=== PATIENT | male | born 1970 | race Caucasian/White ===

== ENCOUNTER 2017-11-16 00:02 | Inpatient (IN) | payer BC, MEDICAID ==
[~2017-11-16] VITALS: Ht 185.4 cm; Wt 72.8 kg
[2017-11-16] MEDS ORDERED: KETOROLAC 30 MG/1 ML IVPush ONE (01:00)
[2017-11-16] MEDS ORDERED: SODIUM CHLORIDE FLUSH 10ML SYR IVF ONE (01:00)
[2017-11-16] MEDS ORDERED: VANCOMYCIN 1,400 MG in SODIUM CHLORIDE 0.9% 250 ML IV ONE (01:00)
[2017-11-16] MEDS ORDERED: SODIUM CHLORIDE 0.9% 1,000ML IVBOLUS ONE (01:00)
[2017-11-16] MEDS ORDERED: AMPICILLIN/SULBACTAM 3 GM in SODIUM CHLORIDE 0.9% 100 ML IVPB ONE (01:00)
[2017-11-16] MEDS ORDERED: ONDANSETRON 2MG/ML, 2ML IVPush ONE (01:00)
[2017-11-16] MEDS ORDERED: MORPHINE SULFATE 4 MG/ML, 1ML IVPush PRN (01:00)
[2017-11-16] MEDS ORDERED: VANCOMYCIN PER PHARMACY IV ONE (01:00)
[2017-11-16 01:17] LABS: BASOPHILS # (AUTO) 0.02 x10^3/uL (0-0.1); BASOPHILS % (AUTO) 0 % (0-1); EOSINOPHILS # (AUTO) 0.06 x10^3/uL (0-0.4); EOSINOPHILS % (AUTO) 1 % (1-7); LYMPHOCYTES # (AUTO) 0.75 x10^3/uL (1-3.4); LYMPHOCYTES % (AUTO) 8 % (22-44); MD NO; MEAN CORPUSCULAR HGB CONC 33.8 g/dL (33.2-36.2); MEAN CORPUSCULAR VOLUME 91.7 fL (81-97); MEAN PLATELET VOLUME 7.2 fL (7.4-10.4); MONOCYTES # (AUTO) 0.59 x10^3/uL (0.2-0.8); MONOCYTES % (AUTO) 6 % (2-9); NEUTROPHILS # (AUTO) 8.33 x10^3/uL (1.8-6.8); NEUTROPHILS % (AUTO) 85 % (42-75); PLATELET COUNT 281 x10^3/uL (130-400); RED BLOOD COUNT 3.66 x10^6/uL (4.38-5.82)
[2017-11-16 01:19] LABS: HCT (SEDRATE) 33.6 % (39.2-51.8)
[2017-11-16 01:27] LABS: ANION GAP 7 mmol/L (5-15); CALCIUM 8.7 mg/dL (8.5-10.1); CHLORIDE 102 mmol/L (98-107); CREATININE 1.01 mg/dL (0.7-1.3)
[2017-11-16] MEDS ORDERED: KETOROLAC 30 MG/1 ML ONE (02:18)
[2017-11-16] MEDS ORDERED: ONDANSETRON 2MG/ML, 2ML ONE (02:18)
[2017-11-16] MEDS ORDERED: GABA300C10 PO (02:43)
[2017-11-16] MEDS ORDERED: METF500T4 PO (02:44)
[2017-11-16] MEDS ORDERED: GLIP5TAB10 PO (02:44)
[2017-11-16] MEDS ORDERED: MORPHINE SULFATE 4 MG/ML, 1ML ONE (05:34)
[2017-11-16] MEDS ORDERED: POTASSIUM CHLORIDE 20 MEQ TAB.ER.PRT PO ONE (06:00)
[2017-11-16] MEDS ORDERED: TEMAZEPAM 15 MG CAPSULE PO PRN (06:00)
[2017-11-16] MEDS ORDERED: KETOROLAC 30 MG/1 ML IM PRN (06:00)
[2017-11-16] MEDS ORDERED: ACETAMINOPHEN 325 MG TABLET PO PRN (06:00)
[2017-11-16] MEDS ORDERED: morphine SULFATE 10 MG/ML, 1ML ONE (06:05)
[2017-11-16] MEDS ORDERED: POTASSIUM CHLORIDE 20 MEQ TAB.ER.PRT ONE (06:08)
[2017-11-16] MEDS ORDERED: ENOXAPARIN 40 MG/0.4 ML ONE (06:08)
[2017-11-16] MEDS: ENOXAPARIN 40 MG/0.4 ML SQ SCH (06:19)
[2017-11-16 07:20] LABS: HEMOGLOBIN A1C 9.1 % (4.2-6.3)
[2017-11-16] MEDS: INSULIN ASPART 100 UNITS/ML, PEN SQ-INSULIN SCH ×4 (07:57→20:36)
[2017-11-16] MEDS: AMPICILLIN/SULBACTAM 3 GM in SODIUM CHLORIDE 0.9% 100 ML IV SCH ×3 (07:59→19:55)
[2017-11-16 12:48] VITALS: BP 96/60
[2017-11-16 15:25] VITALS: BP 96/60
[2017-11-16] MEDS: GABAPENTIN 300 MG CAPSULE PO SCH (20:36)
[2017-11-16 20:44] VITALS: BP 93/53
[2017-11-17 00:17] VITALS: BP 102/67
[2017-11-17] MEDS: AMPICILLIN/SULBACTAM 3 GM in SODIUM CHLORIDE 0.9% 100 ML IV SCH ×4 (02:48→20:14)
[2017-11-17] MEDS: KETOROLAC 30 MG/1 ML IV PRN ×2 (02:49→11:47)
[2017-11-17] MEDS: ENOXAPARIN 40 MG/0.4 ML SQ SCH (05:54)
[2017-11-17 06:04] LABS: BASOPHILS # (AUTO) 0.05 x10^3/uL (0-0.1); BASOPHILS % (AUTO) 1 % (0-1); EOSINOPHILS # (AUTO) 0.19 x10^3/uL (0-0.4); EOSINOPHILS % (AUTO) 3 % (1-7); LYMPHOCYTES # (AUTO) 1.08 x10^3/uL (1-3.4); LYMPHOCYTES % (AUTO) 15 % (22-44); MD NO; MEAN CORPUSCULAR HGB CONC 33.7 g/dL (33.2-36.2); MEAN PLATELET VOLUME 7.1 fL (7.4-10.4); MONOCYTES # (AUTO) 0.69 x10^3/uL (0.2-0.8); MONOCYTES % (AUTO) 9 % (2-9); NEUTROPHILS # (AUTO) 5.39 x10^3/uL (1.8-6.8); NEUTROPHILS % (AUTO) 73 % (42-75); PLATELET COUNT 231 x10^3/uL (130-400); RED BLOOD COUNT 3.45 x10^6/uL (4.38-5.82); RED CELL DISTRIBUTION WIDTH 14.4 % (9.4-14.8)
[2017-11-17 06:13] LABS: ANION GAP 6 mmol/L (5-15); CALCIUM 8.2 mg/dL (8.5-10.1); CHLORIDE 108 mmol/L (98-107); CREATININE 0.84 mg/dL (0.7-1.3)
[2017-11-17 07:45] VITALS: BP 105/64
[2017-11-17] MEDS: INSULIN ASPART 100 UNITS/ML, PEN SQ-INSULIN SCH ×4 (08:56→20:14)
[2017-11-17 12:20] VITALS: BP 103/64
[2017-11-17 15:47] LABS: HCT (SEDRATE) 31.6 % (39.2-51.8)
[2017-11-17 19:07] VITALS: BP 100/59
[2017-11-17] MEDS: GABAPENTIN 300 MG CAPSULE PO SCH (20:14)
[2017-11-18] MEDS: KETOROLAC 30 MG/1 ML IV PRN (00:51)
[2017-11-18] MEDS: AMPICILLIN/SULBACTAM 3 GM in SODIUM CHLORIDE 0.9% 100 ML IV SCH ×4 (01:52→20:05)
[2017-11-18 01:57] VITALS: BP 100/64
[2017-11-18] MEDS: ENOXAPARIN 40 MG/0.4 ML SQ SCH (05:53)
[2017-11-18 06:00] LABS: BASOPHILS # (AUTO) 0.06 x10^3/uL (0-0.1); BASOPHILS % (AUTO) 1 % (0-1); EOSINOPHILS # (AUTO) 0.25 x10^3/uL (0-0.4); EOSINOPHILS % (AUTO) 5 % (1-7); LYMPHOCYTES # (AUTO) 1.39 x10^3/uL (1-3.4); LYMPHOCYTES % (AUTO) 25 % (22-44); MD NO; MEAN CORPUSCULAR HEMOGLOBIN 31.1 pg (27.5-34.5); MEAN CORPUSCULAR VOLUME 91.6 fL (81-97); MEAN PLATELET VOLUME 7.2 fL (7.4-10.4); MONOCYTES # (AUTO) 0.57 x10^3/uL (0.2-0.8); MONOCYTES % (AUTO) 10 % (2-9); NEUTROPHILS # (AUTO) 3.41 x10^3/uL (1.8-6.8); NEUTROPHILS % (AUTO) 60 % (42-75); PLATELET COUNT 261 x10^3/uL (130-400); RED CELL DISTRIBUTION WIDTH 14.4 % (9.4-14.8)
[2017-11-18 06:06] LABS: ANION GAP 6 mmol/L (5-15); CALCIUM 8.2 mg/dL (8.5-10.1); CHLORIDE 110 mmol/L (98-107); CREATININE 0.86 mg/dL (0.7-1.3)
[2017-11-18 06:55] VITALS: BP 111/72
[2017-11-18] MEDS: INSULIN ASPART 100 UNITS/ML, PEN SQ-INSULIN SCH ×4 (08:10→20:13)
[2017-11-18 13:15] VITALS: BP 104/66
[2017-11-18 19:19] VITALS: BP 99/62
[2017-11-18] MEDS: GABAPENTIN 300 MG CAPSULE PO SCH (20:13)
[2017-11-18] MEDS: metFORMIN 500 MG TABLET PO SCH (20:13)
[2017-11-19] MEDS: AMPICILLIN/SULBACTAM 3 GM in SODIUM CHLORIDE 0.9% 100 ML IV SCH ×4 (02:14→21:18)
[2017-11-19 02:52] VITALS: BP 108/71
[2017-11-19] MEDS: ENOXAPARIN 40 MG/0.4 ML SQ SCH (05:39)
[2017-11-19] MEDS: INSULIN ASPART 100 UNITS/ML, PEN SQ-INSULIN SCH ×4 (08:10→21:00)
[2017-11-19] MEDS: metFORMIN 500 MG TABLET PO SCH ×2 (08:11→21:52)
[2017-11-19] MEDS ORDERED: GLUCAGON 1 MG IM PRN (15:30)
[2017-11-19] MEDS ORDERED: DEXTROSE 4 GM TAB.CHEW PO PRN (15:30)
[2017-11-19] MEDS ORDERED: DEXTROSE 50%, 50ML SYRINGE IVPush PRN (15:30)
[2017-11-19] MEDS ORDERED: VANCOMYCIN PER PHARMACY MC PRN (15:30)
[2017-11-19] MEDS ORDERED: PHARMACOKINETIC CONSULTATION MC ONE (16:00)
[2017-11-19] MEDS ORDERED: PHARMACOKINETIC MONITORING MC PRN (16:00)
[2017-11-19] MEDS: KETOROLAC 30 MG/1 ML IV PRN (16:19)
[2017-11-19] MEDS: VANCOMYCIN 1,500 MG in SODIUM CHLORIDE 0.9% 250 ML IV SCH (19:02)
[2017-11-19] MEDS: GABAPENTIN 300 MG CAPSULE PO SCH (21:52)
[2017-11-19] MEDS: SODIUM CHLORIDE FLUSH 10ML SYR IVF SCH (21:52)
[2017-11-20] MEDS: AMPICILLIN/SULBACTAM 3 GM in SODIUM CHLORIDE 0.9% 100 ML IV SCH ×4 (02:18→20:16)
[2017-11-20] MEDS: ENOXAPARIN 40 MG/0.4 ML SQ SCH (05:50)
[2017-11-20 05:53] LABS: BASOPHILS # (AUTO) 0.05 x10^3/uL (0-0.1); BASOPHILS % (AUTO) 1 % (0-1); EOSINOPHILS # (AUTO) 0.19 x10^3/uL (0-0.4); EOSINOPHILS % (AUTO) 4 % (1-7); LYMPHOCYTES # (AUTO) 1.36 x10^3/uL (1-3.4); LYMPHOCYTES % (AUTO) 26 % (22-44); MD NO; MEAN CORPUSCULAR HEMOGLOBIN 30.9 pg (27.5-34.5); MEAN CORPUSCULAR HGB CONC 33.5 g/dL (33.2-36.2); MEAN CORPUSCULAR VOLUME 92.3 fL (81-97); MEAN PLATELET VOLUME 7.1 fL (7.4-10.4); MONOCYTES # (AUTO) 0.48 x10^3/uL (0.2-0.8); MONOCYTES % (AUTO) 9 % (2-9); NEUTROPHILS # (AUTO) 3.14 x10^3/uL (1.8-6.8); NEUTROPHILS % (AUTO) 60 % (42-75); PLATELET COUNT 317 x10^3/uL (130-400); RED BLOOD COUNT 3.58 x10^6/uL (4.38-5.82); RED CELL DISTRIBUTION WIDTH 14.5 % (9.4-14.8)
[2017-11-20 05:59] LABS: ANION GAP 5 mmol/L (5-15); CALCIUM 8.1 mg/dL (8.5-10.1); CHLORIDE 111 mmol/L (98-107)
[2017-11-20 06:11] LABS: CREATININE 0.77 mg/dL (0.7-1.3)
[2017-11-20] MEDS ORDERED: GADOBUTROL 7.5 MMOL/7.5 ML PFS ONE (08:05)
[2017-11-20 08:42] VITALS: BP 113/74
[2017-11-20] MEDS: metFORMIN 500 MG TABLET PO SCH ×2 (08:51→20:16)
[2017-11-20] MEDS: INSULIN ASPART 100 UNITS/ML, PEN SQ-INSULIN SCH ×4 (08:51→20:12)
[2017-11-20] MEDS: SODIUM CHLORIDE FLUSH 10ML SYR IVF SCH ×2 (08:52→20:17)
[2017-11-20] MEDS: VANCOMYCIN 1,500 MG in SODIUM CHLORIDE 0.9% 250 ML IV SCH (10:35)
[2017-11-20 14:40] VITALS: BP 104/59
[2017-11-20] MEDS ORDERED: D5%-0.9% NACL 1,000 ML IV SCH (15:00)
[2017-11-20] MEDS ORDERED: MIDAZOLAM 1 MG/ML, 2ML ONE (17:20)
[2017-11-20] MEDS ORDERED: FENTANYL PF 100 MCG/2ML ONE (17:20)
[2017-11-20] MEDS ORDERED: KETAMINE 10 MG/ML, 20ML ONE (18:14)
[2017-11-20] MEDS ORDERED: FENTANYL PF 100 MCG/2ML IV PRN (19:00)
[2017-11-20] MEDS ORDERED: ONDANSETRON 2MG/ML, 2ML IVPush PRN (19:00)
[2017-11-20] MEDS ORDERED: OXYcodone 5 MG/5 ML ORAL.SOL UDC PO PRN (19:00)
[2017-11-20] MEDS ORDERED: KETOROLAC 30 MG/1 ML IV PRN (19:00)
[2017-11-20] MEDS ORDERED: ALBUTEROL SULFATE 2.5 MG/3 ML NPPB PRN (19:00)
[2017-11-20] MEDS ORDERED: PROMETHAZINE 25 MG/ML, 1ML IV PRN (19:00)
[2017-11-20] MEDS ORDERED: HYDROmorphone 1 MG/ML, 1ML IV PRN (19:00)
[2017-11-20] MEDS ORDERED: ACETAMINOPHEN 325 MG TABLET PO PRN (19:00)
[2017-11-20] MEDS ORDERED: KETOROLAC 30 MG/1 ML ONE (19:05)
[2017-11-20] MEDS ORDERED: OXYcodone 5 MG/5 ML ORAL.SOL UDC ONE (19:05)
[2017-11-20] MEDS: GABAPENTIN 300 MG CAPSULE PO SCH (20:16)
[2017-11-20 20:25] VITALS: BP 120/80
[2017-11-21] MEDS: VANCOMYCIN 1,500 MG in SODIUM CHLORIDE 0.9% 250 ML IV SCH ×2 (00:19→12:37)
[2017-11-21 00:34] VITALS: BP 112/69
[2017-11-21] MEDS: KETOROLAC 30 MG/1 ML IV PRN (02:06)
[2017-11-21] MEDS: AMPICILLIN/SULBACTAM 3 GM in SODIUM CHLORIDE 0.9% 100 ML IV SCH ×4 (02:06→23:26)
[2017-11-21] MEDS: ENOXAPARIN 40 MG/0.4 ML SQ SCH (06:22)
[2017-11-21] MEDS: INSULIN ASPART 100 UNITS/ML, PEN SQ-INSULIN SCH ×4 (07:44→19:34)
[2017-11-21] MEDS: HYDROcodone/APAP 5/325 TABLET PO PRN ×4 (07:44→23:26)
[2017-11-21 07:45] VITALS: BP 116/71
[2017-11-21 08:26] LABS: BASOPHILS # (AUTO) 0.05 x10^3/uL (0-0.1); BASOPHILS % (AUTO) 1 % (0-1); EOSINOPHILS # (AUTO) 0.15 x10^3/uL (0-0.4); EOSINOPHILS % (AUTO) 2 % (1-7); LYMPHOCYTES # (AUTO) 1.08 x10^3/uL (1-3.4); LYMPHOCYTES % (AUTO) 17 % (22-44); MD NO; MEAN CORPUSCULAR HEMOGLOBIN 31.3 pg (27.5-34.5); MEAN CORPUSCULAR VOLUME 92.2 fL (81-97); MEAN PLATELET VOLUME 6.9 fL (7.4-10.4); MONOCYTES # (AUTO) 0.44 x10^3/uL (0.2-0.8); MONOCYTES % (AUTO) 7 % (2-9); NEUTROPHILS # (AUTO) 4.82 x10^3/uL (1.8-6.8); NEUTROPHILS % (AUTO) 74 % (42-75); PLATELET COUNT 310 x10^3/uL (130-400); RED BLOOD COUNT 3.65 x10^6/uL (4.38-5.82); RED CELL DISTRIBUTION WIDTH 14.4 % (9.4-14.8)
[2017-11-21 08:31] LABS: ANION GAP 7 mmol/L (5-15); CALCIUM 7.6 mg/dL (8.5-10.1); CHLORIDE 107 mmol/L (98-107); CREATININE 0.86 mg/dL (0.7-1.3)
[2017-11-21] MEDS: metFORMIN 500 MG TABLET PO SCH ×2 (08:44→19:34)
[2017-11-21] MEDS: SODIUM CHLORIDE FLUSH 10ML SYR IVF SCH ×2 (08:45→19:34)
[2017-11-21 14:50] VITALS: BP 92/51
[2017-11-21] MEDS ORDERED: PROPOFOL 10 MG/ML, 20ML ONE (17:54)
[2017-11-21 19:12] VITALS: BP 108/69
[2017-11-21] MEDS: GABAPENTIN 300 MG CAPSULE PO SCH (19:34)
[2017-11-22 01:19] VITALS: BP 107/56
[2017-11-22] MEDS: AMPICILLIN/SULBACTAM 3 GM in SODIUM CHLORIDE 0.9% 100 ML IV SCH ×2 (05:24→12:06)
[2017-11-22] MEDS: ENOXAPARIN 40 MG/0.4 ML SQ SCH (05:31)
[2017-11-22] MEDS: INSULIN ASPART 100 UNITS/ML, PEN SQ-INSULIN SCH ×4 (07:00→21:00)
[2017-11-22 08:33] VITALS: BP 101/60
[2017-11-22] MEDS: SODIUM CHLORIDE FLUSH 10ML SYR IVF SCH ×2 (09:00→19:33)
[2017-11-22] MEDS: metFORMIN 500 MG TABLET PO SCH ×2 (09:28→19:41)
[2017-11-22] MEDS: HYDROcodone/APAP 5/325 TABLET PO PRN ×2 (09:28→19:31)
[2017-11-22] MEDS ORDERED: DAPTOMYCIN IVPB SCH (13:30)
[2017-11-22] MEDS ORDERED: SODIUM CHLORIDE 0.9% IVPB SCH (13:30)
[2017-11-22] MEDS: DAPTOMYCIN 500 MG in SODIUM CHLORIDE 0.9% 100 ML IVPB SCH (14:58)
[2017-11-22 16:13] VITALS: BP 120/56
[2017-11-22] MEDS ORDERED: PNEUMOCOCCAL 23 VACCINE IM-VACC ONE (17:30)
[2017-11-22] MEDS ORDERED: VANCOMYCIN 1,500 MG in SODIUM CHLORIDE 0.9% 250 ML IV SCH ×2 (18:00)
[2017-11-22 19:16] VITALS: BP 104/61
[2017-11-22] MEDS: GABAPENTIN 300 MG CAPSULE PO SCH (19:42)
[2017-11-23 02:03] VITALS: BP 108/67
[2017-11-23] MEDS: ENOXAPARIN 40 MG/0.4 ML SQ SCH (05:17)
[2017-11-23 05:32] LABS: MEAN CORPUSCULAR HGB CONC 33.3 g/dL (33.2-36.2); MEAN CORPUSCULAR VOLUME 92.8 fL (81-97); NEUTROPHILS % (AUTO) 67 % (42-75); PLATELET COUNT 356 x10^3/uL (130-400); RED BLOOD COUNT 3.86 x10^6/uL (4.38-5.82); RED CELL DISTRIBUTION WIDTH 14.6 % (9.4-14.8)
[2017-11-23 05:33] LABS: BASOPHILS # (AUTO) 0.06 x10^3/uL (0-0.1); BASOPHILS % (AUTO) 1 % (0-1); EOSINOPHILS # (AUTO) 0.22 x10^3/uL (0-0.4); EOSINOPHILS % (AUTO) 3 % (1-7); LYMPHOCYTES # (AUTO) 1.38 x10^3/uL (1-3.4); LYMPHOCYTES % (AUTO) 21 % (22-44); MD NO; MONOCYTES # (AUTO) 0.47 x10^3/uL (0.2-0.8); MONOCYTES % (AUTO) 7 % (2-9); NEUTROPHILS # (AUTO) 4.43 x10^3/uL (1.8-6.8)
[2017-11-23 05:41] LABS: CHLORIDE 106 mmol/L (98-107)
[2017-11-23 05:46] LABS: ANION GAP 8 mmol/L (5-15); CALCIUM 8.3 mg/dL (8.5-10.1); CREATININE 0.86 mg/dL (0.7-1.3)
[2017-11-23] MEDS: INSULIN ASPART 100 UNITS/ML, PEN SQ-INSULIN SCH ×4 (07:00→20:42)
[2017-11-23 08:12] VITALS: BP 115/69
[2017-11-23] MEDS: SODIUM CHLORIDE FLUSH 10ML SYR IVF SCH ×2 (08:23→20:42)
[2017-11-23] MEDS: metFORMIN 500 MG TABLET PO SCH ×2 (08:24→20:42)
[2017-11-23] MEDS: DAPTOMYCIN 500 MG in SODIUM CHLORIDE 0.9% 100 ML IVPB SCH (13:30)
[2017-11-23 14:58] VITALS: BP 113/69
[2017-11-23] MEDS: HYDROcodone/APAP 5/325 TABLET PO PRN (16:25)
[2017-11-23 20:16] VITALS: BP 103/60
[2017-11-23] MEDS: GABAPENTIN 300 MG CAPSULE PO SCH (20:42)
[2017-11-24 03:22] VITALS: BP 119/78
[2017-11-24] MEDS: ENOXAPARIN 40 MG/0.4 ML SQ SCH (06:25)
[2017-11-24] MEDS: INSULIN ASPART 100 UNITS/ML, PEN SQ-INSULIN SCH ×4 (07:00→20:12)
[2017-11-24 07:52] VITALS: BP 120/76
[2017-11-24] MEDS: SODIUM CHLORIDE FLUSH 10ML SYR IVF SCH ×2 (10:43→20:48)
[2017-11-24] MEDS: metFORMIN 500 MG TABLET PO SCH ×2 (10:43→20:48)
[2017-11-24] MEDS: DAPTOMYCIN 500 MG in SODIUM CHLORIDE 0.9% 100 ML IVPB SCH (15:01)
[2017-11-24 15:08] VITALS: BP 98/62
[2017-11-24 19:11] VITALS: BP 106/66
[2017-11-24] MEDS: GABAPENTIN 300 MG CAPSULE PO SCH (20:48)
[2017-11-25 02:28] VITALS: BP 108/68
[2017-11-25] MEDS: ENOXAPARIN 40 MG/0.4 ML SQ SCH (06:03)
[2017-11-25 07:20] VITALS: BP 112/73
[2017-11-25] MEDS: INSULIN ASPART 100 UNITS/ML, PEN SQ-INSULIN SCH ×4 (07:30→20:41)
[2017-11-25] MEDS: SODIUM CHLORIDE FLUSH 10ML SYR IVF SCH ×2 (10:47→20:37)
[2017-11-25] MEDS: metFORMIN 500 MG TABLET PO SCH ×2 (10:47→20:37)
[2017-11-25] MEDS: DAPTOMYCIN 500 MG in SODIUM CHLORIDE 0.9% 100 ML IVPB SCH (14:00)
[2017-11-25 14:01] VITALS: BP 92/55
[2017-11-25 18:27] VITALS: BP 96/54
[2017-11-25] MEDS: GABAPENTIN 300 MG CAPSULE PO SCH (20:37)
[2017-11-26 02:54] VITALS: BP 96/53
[2017-11-26] MEDS: ENOXAPARIN 40 MG/0.4 ML SQ SCH (06:26)
[2017-11-26] MEDS: INSULIN ASPART 100 UNITS/ML, PEN SQ-INSULIN SCH ×4 (07:00→21:00)
[2017-11-26 08:00] VITALS: BP 96/54
[2017-11-26] MEDS: metFORMIN 500 MG TABLET PO SCH ×2 (08:54→20:47)
[2017-11-26] MEDS: SODIUM CHLORIDE FLUSH 10ML SYR IVF SCH ×2 (08:54→20:47)
[2017-11-26 10:56] VITALS: BP 101/63
[2017-11-26 13:04] VITALS: BP 91/51
[2017-11-26] MEDS: DAPTOMYCIN 500 MG in SODIUM CHLORIDE 0.9% 100 ML IVPB SCH (14:56)
[2017-11-26 18:53] VITALS: BP 97/56
[2017-11-26] MEDS: GABAPENTIN 300 MG CAPSULE PO SCH (20:47)
[2017-11-26] MEDS: ONDANSETRON 2MG/ML, 2ML IVPush PRN (22:32)
[2017-11-27 01:33] VITALS: BP 102/62
[2017-11-27 02:36] LABS: CREATININE 0.84 mg/dL (0.7-1.3)
[2017-11-27] MEDS: ENOXAPARIN 40 MG/0.4 ML SQ SCH (06:02)
[2017-11-27 07:26] VITALS: BP 104/65
[2017-11-27] MEDS: metFORMIN 500 MG TABLET PO SCH ×2 (09:33→19:55)
[2017-11-27] MEDS: SODIUM CHLORIDE FLUSH 10ML SYR IVF SCH ×2 (09:33→19:55)
[2017-11-27] MEDS: INSULIN ASPART 100 UNITS/ML, PEN SQ-INSULIN SCH ×4 (09:34→21:00)
[2017-11-27] MEDS: DAPTOMYCIN 500 MG in SODIUM CHLORIDE 0.9% 100 ML IVPB SCH (13:50)
[2017-11-27 13:55] VITALS: BP 100/61
[2017-11-27 19:01] VITALS: BP 94/56
[2017-11-27] MEDS: GABAPENTIN 300 MG CAPSULE PO SCH (19:55)
[2017-11-28 01:15] VITALS: BP 94/54
[2017-11-28] MEDS: ENOXAPARIN 40 MG/0.4 ML SQ SCH (06:41)
[2017-11-28] MEDS: INSULIN ASPART 100 UNITS/ML, PEN SQ-INSULIN SCH ×2 (07:00→11:00)
[2017-11-28 07:07] VITALS: BP 90/55
[2017-11-28] MEDS: SODIUM CHLORIDE FLUSH 10ML SYR IVF SCH ×2 (09:00→20:36)
[2017-11-28] MEDS: metFORMIN 500 MG TABLET PO SCH ×2 (10:04→20:36)
[2017-11-28 15:17] VITALS: BP 94/57
[2017-11-28] MEDS: INSULIN LISPRO 100 UNITS/ML, PEN SQ-INSULIN SCH ×2 (16:00→20:42)
[2017-11-28] MEDS: DAPTOMYCIN 500 MG in SODIUM CHLORIDE 0.9% 100 ML IVPB SCH (16:06)
[2017-11-28 19:48] VITALS: BP 99/64
[2017-11-28] MEDS: GABAPENTIN 300 MG CAPSULE PO SCH (20:36)
[2017-11-29 01:26] VITALS: BP 97/52
[2017-11-29 03:25] LABS: BASOPHILS # (AUTO) 0.11 x10^3/uL (0-0.1); BASOPHILS % (AUTO) 1 % (0-1); EOSINOPHILS # (AUTO) 0.34 x10^3/uL (0-0.4); EOSINOPHILS % (AUTO) 4 % (1-7); LYMPHOCYTES # (AUTO) 1.82 x10^3/uL (1-3.4); LYMPHOCYTES % (AUTO) 22 % (22-44); MD NO; MEAN CORPUSCULAR HEMOGLOBIN 30.5 pg (27.5-34.5); MEAN CORPUSCULAR HGB CONC 33.2 g/dL (33.2-36.2); MEAN CORPUSCULAR VOLUME 91.8 fL (81-97); MEAN PLATELET VOLUME 7.2 fL (7.4-10.4); MONOCYTES # (AUTO) 0.55 x10^3/uL (0.2-0.8); MONOCYTES % (AUTO) 7 % (2-9); NEUTROPHILS # (AUTO) 5.53 x10^3/uL (1.8-6.8); NEUTROPHILS % (AUTO) 66 % (42-75); PLATELET COUNT 331 x10^3/uL (130-400); RED BLOOD COUNT 3.96 x10^6/uL (4.38-5.82); RED CELL DISTRIBUTION WIDTH 15.1 % (9.4-14.8)
[2017-11-29 03:30] LABS: ALANINE AMINOTRANSFERASE 24 U/L (12-78); ALBUMIN 2.7 g/dL (3.4-5.0); ANION GAP 6 mmol/L (5-15); C-REACTIVE PROTEIN, QUANT 0.62 mg/dL (0.02-0.49); CALCIUM 8.3 mg/dL (8.5-10.1); CHLORIDE 104 mmol/L (98-107); CREATININE 0.83 mg/dL (0.7-1.3)
[2017-11-29 03:33] LABS: ALKALINE PHOSPHATASE 106 U/L (45-117); BILIRUBIN,TOTAL 0.2 mg/dL (0.2-1.0); CREATINE KINASE, TOTAL 35 U/L (39-308); TOTAL PROTEIN 6.9 g/dL (6.4-8.2)
[2017-11-29 04:15] LABS: HCT (SEDRATE) 36.3 % (39.2-51.8)
[2017-11-29] MEDS: ENOXAPARIN 40 MG/0.4 ML SQ SCH (05:47)
[2017-11-29] MEDS: INSULIN ASPART 100 UNITS/ML, PEN SQ-INSULIN SCH ×4 (07:00→20:32)
[2017-11-29] MEDS: metFORMIN 500 MG TABLET PO SCH ×2 (07:32→20:32)
[2017-11-29 08:01] VITALS: BP 109/60
[2017-11-29] MEDS: SODIUM CHLORIDE FLUSH 10ML SYR IVF SCH ×2 (09:00→20:32)
[2017-11-29 13:51] VITALS: BP 107/41
[2017-11-29] MEDS: DAPTOMYCIN 500 MG in SODIUM CHLORIDE 0.9% 100 ML IVPB SCH (16:37)
[2017-11-29 18:40] VITALS: BP 109/64
[2017-11-29] MEDS: GABAPENTIN 300 MG CAPSULE PO SCH (20:32)
[2017-11-29] MEDS: ONDANSETRON 2MG/ML, 2ML IVPush PRN (20:35)
[2017-11-30 01:38] VITALS: BP 97/58
[2017-11-30] MEDS: ENOXAPARIN 40 MG/0.4 ML SQ SCH (05:59)
[2017-11-30] MEDS: INSULIN ASPART 100 UNITS/ML, PEN SQ-INSULIN SCH ×2 (07:00→11:00)
[2017-11-30] MEDS: SODIUM CHLORIDE FLUSH 10ML SYR IVF SCH (07:27)
[2017-11-30] MEDS: metFORMIN 500 MG TABLET PO SCH (07:27)
[2017-11-30 07:36] VITALS: BP 96/58
[2017-11-30] MEDS ORDERED: ACET325T14 PO (10:59)
== END 2017-11-30 14:03 | DRG 629 ==
LOC: ED 02:03 → EDIP 02:08 → 3NE 12:23
PROVIDERS: ADMIT Internal Medicine; ATTEND Family Medicine
PROC: 0QBP0ZZ Excision of Left Metatarsal, Open Approach (ICD-10-PCS; 2017-11-20)
PROC: 0KBT0ZZ Excision of Left Lower Leg Muscle, Open Approach (ICD-10-PCS; 2017-11-20)
PROC: 0LXP0ZZ Transfer Left Lower Leg Tendon, Open Approach (ICD-10-PCS; 2017-11-20)
PROC: 02HV33Z Insertion of Infusion Device into Superior Vena Cava, Percutaneous Approach (ICD-10-PCS; principal; 2017-11-21)
PROC: B5181ZA Fluoroscopy of Superior Vena Cava using Low Osmolar Contrast, Guidance (ICD-10-PCS; 2017-11-21)
DX: E11.69 Type 2 diabetes mellitus with other specified complication (principal); M86.172 Other acute osteomyelitis, left ankle and foot; E11.621 Type 2 diabetes mellitus with foot ulcer; E11.40 Type 2 diabetes mellitus with diabetic neuropathy, unspecified; I95.9 Hypotension, unspecified; M00.9 Pyogenic arthritis, unspecified; L03.116 Cellulitis of left lower limb; E11.622 Type 2 diabetes mellitus with other skin ulcer; L97.509 Non-pressure chronic ulcer of other part of unspecified foot with unspecified severity; D64.9 Anemia, unspecified; E11.65 Type 2 diabetes mellitus with hyperglycemia; F17.210 Nicotine dependence, cigarettes, uncomplicated
CPT/HCPCS: 36415; 36569; 76937; 77001; 80048; 80053; 80202; 82040; 82550; 82565; 82962; 83036; 83605; 83735; 84145; 85025; 85651; 86140; 87040; 87070; 87075; 87077; 87176; 87186; 87205; 90732; 96365; 96375; A9585; J0295; J0878; J1650; J1815; J1885; J2250; J2405; J2704; J3010; J3370; J7042; C1751; J7030; J7050

== ENCOUNTER 2020-04-12 00:48 | Inpatient (IN) | payer MEDICAID ==
[~2020-04-12] VITALS: Ht 185.4 cm; Wt 71.0 kg
[~2020-04-12 00:48] MED LIST: ACET325T14 PO; GABA300C10 PO; GLIP5TAB10 PO; METF500T17 PO
[2020-04-12] MEDS ORDERED: SODIUM CHLORIDE FLUSH 10ML SYR IVF ONE (01:30)
[2020-04-12] MEDS ORDERED: SODIUM CHLORIDE 0.9% 1,000ML IVBOLUS ONE (01:30)
--- NOTE | 2020-04-12 01:52 | NUR ---
PT TO ED WITH C/O INFECTION OF THE RIGHT GREAT TOE. REPORTS HE IS A DIABETIC AND HAS BEEN OUT OF HIS INSULIN FOR A COUPLE OF WEEKS. DENIES FEVERS OR VOMITING. REPORTS PAINFUL WHEN WALKING. IV STARTED AND BLOOD DRAWN AND SENT TO LAB.
[2020-04-12 01:54] LABS: BASOPHILS # (AUTO) 0.07 x10^3/uL (0-0.1); BASOPHILS % (AUTO) 1 % (0-1); EOSINOPHILS # (AUTO) 0.14 x10^3/uL (0-0.4); EOSINOPHILS % (AUTO) 2 % (1-7); LYMPHOCYTES # (AUTO) 1.31 x10^3/uL (1-3.4); LYMPHOCYTES % (AUTO) 14 % (22-44); MD NO; MEAN CORPUSCULAR HEMOGLOBIN 32.4 pg (27.5-34.5); MEAN CORPUSCULAR HGB CONC 33.1 g/dL (33.2-36.2); MEAN CORPUSCULAR VOLUME 97.7 fL (81-97); MEAN PLATELET VOLUME 7.9 fL (7.4-10.4); MONOCYTES # (AUTO) 0.58 x10^3/uL (0.2-0.8); MONOCYTES % (AUTO) 6 % (2-9); NEUTROPHILS # (AUTO) 7.57 x10^3/uL (1.8-6.8); NEUTROPHILS % (AUTO) 78 % (42-75); PLATELET COUNT 207 x10^3/uL (130-400); RED BLOOD COUNT 4.14 x10^6/uL (4.38-5.82); RED CELL DISTRIBUTION WIDTH 13.5 % (9.4-14.8)
[2020-04-12] MEDS ORDERED: MORPHINE SULFATE 4 MG/ML, 1ML ONE (01:56)
--- NOTE | 2020-04-12 01:58 | NUR ---
edit: right 5th digit
[2020-04-12] MEDS: MORPHINE SULFATE 4 MG/ML, 1ML IV PRN ×2 (01:59→05:16)
--- NOTE | 2020-04-12 02:01 | NUR ---
MEDICATION GIVEN PER EMAR. AWAITING LAB AND XRAY RESULTS.
[2020-04-12] MEDS ORDERED: INSU100V8 SQ (02:03)
[2020-04-12 02:04] LABS: HCT (SEDRATE) 40.4 % (39.2-51.8)
[2020-04-12 02:07] LABS: ALANINE AMINOTRANSFERASE 19 U/L (12-78); ALBUMIN 3.3 g/dL (3.4-5.0); ANION GAP 8 mmol/L (5-15); CALCIUM 8.5 mg/dL (8.5-10.1); CHLORIDE 104 mmol/L (98-107); CREATININE 1.08 mg/dL (0.7-1.3)
[2020-04-12 02:14] LABS: ALKALINE PHOSPHATASE 99 U/L (45-117); BILIRUBIN,TOTAL 0.9 mg/dL (0.2-1.0); TOTAL PROTEIN 7.1 g/dL (6.4-8.2)
--- NOTE | 2020-04-12 03:22 | NUR ---
PT RESTING AT THIS TIME. PT AGREEABLE TO PLAN OF CARE OF ADMISSION.
[2020-04-12] MEDS ORDERED: AMPICILLIN/SULBACTAM 3 GM in SODIUM CHLORIDE 0.9% 100 ML IV ONE (03:30)
[2020-04-12] MEDS ORDERED: VANCOMYCIN 1,400 MG in SODIUM CHLORIDE 0.9% 250 ML IV ONE (03:30)
[2020-04-12] MEDS ORDERED: VANCOMYCIN PER PHARMACY MC ONE (03:30)
--- NOTE | 2020-04-12 03:32 | NUR ---
LAB TO BEDSIDE TO DRAW CULTURES.
--- NOTE | 2020-04-12 04:01 | NUR ---
AMIRAH STARTED. PT DENIES CURRENT CONCERNS. AWAITING INPATIENT BED PLACEMENT.
[2020-04-12] MEDS ORDERED: DOCUSATE 100 MG CAPSULE PO PRN (04:30)
[2020-04-12] MEDS ORDERED: KETOROLAC 30 MG/1 ML IM PRN (04:30)
[2020-04-12] MEDS ORDERED: ACETAMINOPHEN 325 MG TABLET PO PRN (04:30)
[2020-04-12] MEDS ORDERED: IBUPROFEN 600 MG TABLET PO PRN ×2 (04:30→05:24)
[2020-04-12] MEDS ORDERED: ONDANSETRON 2MG/ML, 2ML IVPush PRN (04:30)
--- NOTE | 2020-04-12 04:33 | NUR ---
UNASYN INFUSION COMPLETE. VANCOMYCIN INFUSING ON PUMP. PT SLEEPING. AWAITING INPATIENT BED PLACEMENT.
[2020-04-12] MEDS ORDERED: VANCOMYCIN PER PHARMACY MC PRN (05:00)
[2020-04-12 05:18] VITALS: BP 99/59
[2020-04-12] MEDS: NICOTINE 7 MG/24 HR PATCH.TD24 TD SCH (05:29)
[2020-04-12] MEDS: ENOXAPARIN 40 MG/0.4 ML SQ SCH (05:29)
[2020-04-12] MEDS ORDERED: PHARMACOKINETIC CONSULTATION MC ONE (05:30)
[2020-04-12] MEDS ORDERED: PHARMACOKINETIC MONITORING MC PRN (05:30)
[2020-04-12] MEDS: INSULIN GLARGINE 100 UNITS/ML, PEN SQ-INSULIN SCH ×2 (06:35→20:30)
[2020-04-12] MEDS: PIPERACILLIN/TAZO/PMX 3.375GM 50 ML IV SCH ×3 (06:35→18:43)
[2020-04-12] MEDS: INSULIN LISPRO 100 UNITS/ML, PEN SQ-INSULIN SCH ×4 (08:13→20:29)
[2020-04-12 08:29] VITALS: BP 159/99
[2020-04-12 12:11] VITALS: BP 120/69
[2020-04-12] MEDS: VANCOMYCIN 1,500 MG in SODIUM CHLORIDE 0.9% 250 ML IV SCH (16:14)
[2020-04-12 20:10] VITALS: BP 114/72
[2020-04-12] MEDS: GABAPENTIN 300 MG CAPSULE PO SCH (20:28)
[2020-04-13 00:21] VITALS: BP 123/72
[2020-04-13] MEDS: PIPERACILLIN/TAZO/PMX 3.375GM 50 ML IV SCH ×3 (00:42→11:37)
[2020-04-13 03:15] LABS: AMPHETAMINE SCREEN, URINE Positive (Negative); BARBITURATE SCREEN, URINE Negative (Negative); BENZODIAZEPINE SCREEN, URINE Negative (Negative); CANNABINOID SCREEN, URINE Negative (Negative); COCAINE SCREEN, URINE Negative (Negative); METHADONE SCREEN, URINE Negative (Negative); OPIATE SCREEN, URINE Positive (Negative)
[2020-04-13] MEDS: VANCOMYCIN 1,500 MG in SODIUM CHLORIDE 0.9% 250 ML IV SCH (04:16)
[2020-04-13 05:22] LABS: BASOPHILS # (AUTO) 0.03 x10^3/uL (0-0.1); BASOPHILS % (AUTO) 1 % (0-1); EOSINOPHILS # (AUTO) 0.23 x10^3/uL (0-0.4); EOSINOPHILS % (AUTO) 5 % (1-7); LYMPHOCYTES # (AUTO) 1.45 x10^3/uL (1-3.4); LYMPHOCYTES % (AUTO) 28 % (22-44); MD NO; MEAN CORPUSCULAR HEMOGLOBIN 32.5 pg (27.5-34.5); MEAN CORPUSCULAR VOLUME 98.3 fL (81-97); MEAN PLATELET VOLUME 7.9 fL (7.4-10.4); MONOCYTES # (AUTO) 0.57 x10^3/uL (0.2-0.8); MONOCYTES % (AUTO) 11 % (2-9); NEUTROPHILS # (AUTO) 2.86 x10^3/uL (1.8-6.8); NEUTROPHILS % (AUTO) 56 % (42-75); PLATELET COUNT 190 x10^3/uL (130-400); RED BLOOD COUNT 3.95 x10^6/uL (4.38-5.82); RED CELL DISTRIBUTION WIDTH 13.3 % (9.4-14.8)
[2020-04-13 05:27] LABS: ANION GAP 6 mmol/L (5-15); CALCIUM 7.9 mg/dL (8.5-10.1); CHLORIDE 108 mmol/L (98-107)
[2020-04-13 05:32] LABS: CHOL/HDL RATIO 2.8; CHOLESTEROL, TOTAL 107 mg/dL (140-239); CREATININE 0.94 mg/dL (0.7-1.3); HDL CHOL % 36 % (26-37); HDL CHOLESTEROL (DIRECT) 38 mg/dL (40-60); LDL CHOLESTEROL,CALCULATED 58 mg/dL (54-169); LDL/HDL RATIO 1.5 (0.5-3.0); TRIGLYCERIDES 54 mg/dL (50-200); VLDL CHOLESTEROL 11 mg/dL (0-25)
[2020-04-13] MEDS: NICOTINE 7 MG/24 HR PATCH.TD24 TD SCH (05:34)
[2020-04-13] MEDS: ENOXAPARIN 40 MG/0.4 ML SQ SCH (05:35)
[2020-04-13] MEDS: INSULIN LISPRO 100 UNITS/ML, PEN SQ-INSULIN SCH ×4 (07:00→20:40)
[2020-04-13 07:05] VITALS: BP 104/66
[2020-04-13 12:08] VITALS: BP 126/82
[2020-04-13] MEDS: DAPTOMYCIN 300 MG in SODIUM CHLORIDE 0.9% 100 ML IV SCH (13:53)
[2020-04-13 19:06] VITALS: BP 118/76
[2020-04-13] MEDS: INSULIN GLARGINE 100 UNITS/ML, PEN SQ-INSULIN SCH (20:39)
[2020-04-13] MEDS: GABAPENTIN 300 MG CAPSULE PO SCH (20:40)
[2020-04-14 00:35] VITALS: BP 122/80
[2020-04-14] MEDS: ENOXAPARIN 40 MG/0.4 ML SQ SCH (04:46)
[2020-04-14] MEDS: NICOTINE 7 MG/24 HR PATCH.TD24 TD SCH (05:29)
[2020-04-14] MEDS ORDERED: BUPIVACAINE/PF 0.5% ONE (06:27)
[2020-04-14 07:14] VITALS: BP 138/84
[2020-04-14] MEDS ORDERED: MIDAZOLAM 1 MG/ML, 2ML ONE (07:21)
[2020-04-14] MEDS ORDERED: FENTANYL PF 100 MCG/2ML ONE (07:21)
[2020-04-14] MEDS ORDERED: CHLORHEXIDINE 15 ML UDC ONE (07:32)
[2020-04-14] MEDS ORDERED: ACETAMINOPHEN 325 MG TABLET PO PRN (08:00)
[2020-04-14] MEDS ORDERED: KETOROLAC 30 MG/1 ML IV PRN (08:00)
[2020-04-14] MEDS ORDERED: DIAZEPAM 5 MG/ML, 2ML IVPush PRN (08:00)
[2020-04-14] MEDS ORDERED: HYDROmorphone 2 MG/ML, 1ML IVPush PRN (08:00)
[2020-04-14] MEDS ORDERED: FENTANYL PF 100 MCG/2ML IV PRN (08:00)
[2020-04-14] MEDS ORDERED: MEPERIDINE/PF 25MG/0.5ML IVPush PRN (08:00)
[2020-04-14] MEDS ORDERED: PROMETHAZINE 25 MG/ML, 1ML IV PRN (08:00)
[2020-04-14] MEDS ORDERED: OXYcodone 5 MG/5 ML ORAL.SOL UDC PO PRN (08:00)
[2020-04-14] MEDS ORDERED: LABETALOL 5MG/ML, 20ML IV PRN (08:00)
[2020-04-14] MEDS ORDERED: hydrALAzine 20 MG/ML, 1ML IV PRN (08:00)
[2020-04-14] MEDS ORDERED: ALBUTEROL SULFATE 2.5 MG/3 ML NPPB PRN (08:00)
[2020-04-14] MEDS ORDERED: PROPOFOL 10 MG/ML, 20ML ONE (08:06)
[2020-04-14 09:38] VITALS: BP 123/81
[2020-04-14] MEDS: INSULIN LISPRO 100 UNITS/ML, PEN SQ-INSULIN SCH ×4 (09:49→20:38)
[2020-04-14 13:15] VITALS: BP 145/91
[2020-04-14] MEDS: DAPTOMYCIN 300 MG in SODIUM CHLORIDE 0.9% 100 ML IV SCH (15:32)
[2020-04-14 19:12] VITALS: BP 111/71
[2020-04-14] MEDS: GABAPENTIN 300 MG CAPSULE PO SCH (20:32)
[2020-04-14] MEDS: INSULIN GLARGINE 100 UNITS/ML, PEN SQ-INSULIN SCH (20:37)
[2020-04-15 00:28] VITALS: BP 129/85
[2020-04-15] MEDS: ENOXAPARIN 40 MG/0.4 ML SQ SCH (05:28)
[2020-04-15] MEDS: NICOTINE 7 MG/24 HR PATCH.TD24 TD SCH (05:28)
[2020-04-15] MEDS: INSULIN LISPRO 100 UNITS/ML, PEN SQ-INSULIN SCH ×4 (07:00→21:42)
[2020-04-15 07:38] VITALS: BP 112/73
[2020-04-15] MEDS: DAPTOMYCIN 300 MG in SODIUM CHLORIDE 0.9% 100 ML IV SCH (14:33)
[2020-04-15] MEDS ORDERED: ALTEPLASE 50 ML IV ONE (14:51)
[2020-04-15 14:56] VITALS: BP 105/68
[2020-04-15 19:05] VITALS: BP 130/83
[2020-04-15] MEDS: GABAPENTIN 300 MG CAPSULE PO SCH (21:37)
[2020-04-15] MEDS: INSULIN GLARGINE 100 UNITS/ML, PEN SQ-INSULIN SCH (21:43)
[2020-04-16 00:29] VITALS: BP 112/77
[2020-04-16] MEDS: NICOTINE 7 MG/24 HR PATCH.TD24 TD SCH (05:30)
[2020-04-16] MEDS: ENOXAPARIN 40 MG/0.4 ML SQ SCH (05:40)
[2020-04-16 06:25] LABS: BASOPHILS # (AUTO) 0.04 x10^3/uL (0-0.1); BASOPHILS % (AUTO) 1 % (0-1); EOSINOPHILS # (AUTO) 0.09 x10^3/uL (0-0.4); EOSINOPHILS % (AUTO) 2 % (1-7); LYMPHOCYTES # (AUTO) 1.58 x10^3/uL (1-3.4); LYMPHOCYTES % (AUTO) 26 % (22-44); MD NO; MEAN CORPUSCULAR HEMOGLOBIN 32.8 pg (27.5-34.5); MEAN CORPUSCULAR HGB CONC 33.8 g/dL (33.2-36.2); MEAN PLATELET VOLUME 7.7 fL (7.4-10.4); MONOCYTES # (AUTO) 0.37 x10^3/uL (0.2-0.8); MONOCYTES % (AUTO) 6 % (2-9); NEUTROPHILS # (AUTO) 3.94 x10^3/uL (1.8-6.8); NEUTROPHILS % (AUTO) 65 % (42-75); PLATELET COUNT 256 x10^3/uL (130-400); RED BLOOD COUNT 4.34 x10^6/uL (4.38-5.82); RED CELL DISTRIBUTION WIDTH 13.2 % (9.4-14.8)
[2020-04-16 06:30] LABS: ANION GAP 9 mmol/L (5-15); C-REACTIVE PROTEIN, QUANT 0.36 mg/dL (0.02-0.49); CALCIUM 8.6 mg/dL (8.5-10.1); CHLORIDE 109 mmol/L (98-107); CREATININE 0.73 mg/dL (0.7-1.3)
[2020-04-16 06:50] VITALS: BP 89/54
[2020-04-16] MEDS: INSULIN LISPRO 100 UNITS/ML, PEN SQ-INSULIN SCH ×4 (07:47→20:38)
[2020-04-16 09:05] VITALS: BP 100/64
[2020-04-16] MEDS: DAPTOMYCIN 300 MG in SODIUM CHLORIDE 0.9% 100 ML IV SCH (13:21)
[2020-04-16 13:42] VITALS: BP 116/74
[2020-04-16 18:33] VITALS: BP 97/58
[2020-04-16] MEDS: GABAPENTIN 300 MG CAPSULE PO SCH (20:38)
[2020-04-16] MEDS: INSULIN GLARGINE 100 UNITS/ML, PEN SQ-INSULIN SCH (20:39)
[2020-04-17 00:10] VITALS: BP 106/68
[2020-04-17] MEDS: NICOTINE 7 MG/24 HR PATCH.TD24 TD SCH (05:24)
[2020-04-17] MEDS: ENOXAPARIN 40 MG/0.4 ML SQ SCH (05:24)
[2020-04-17 06:40] LABS: BASOPHILS # (AUTO) 0.04 x10^3/uL (0-0.1); BASOPHILS % (AUTO) 1 % (0-1); EOSINOPHILS # (AUTO) 0.15 x10^3/uL (0-0.4); EOSINOPHILS % (AUTO) 3 % (1-7); LYMPHOCYTES % (AUTO) 33 % (22-44); MD NO; MEAN CORPUSCULAR HEMOGLOBIN 32.6 pg (27.5-34.5); MEAN CORPUSCULAR HGB CONC 33.5 g/dL (33.2-36.2); MEAN CORPUSCULAR VOLUME 97.3 fL (81-97); MEAN PLATELET VOLUME 7.6 fL (7.4-10.4); MONOCYTES # (AUTO) 0.46 x10^3/uL (0.2-0.8); MONOCYTES % (AUTO) 9 % (2-9); NEUTROPHILS # (AUTO) 2.95 x10^3/uL (1.8-6.8); NEUTROPHILS % (AUTO) 55 % (42-75); PLATELET COUNT 241 x10^3/uL (130-400); RED BLOOD COUNT 4.28 x10^6/uL (4.38-5.82); RED CELL DISTRIBUTION WIDTH 13.4 % (9.4-14.8)
[2020-04-17 06:44] LABS: ANION GAP 5 mmol/L (5-15); CALCIUM 8.3 mg/dL (8.5-10.1); CHLORIDE 110 mmol/L (98-107)
[2020-04-17 06:48] LABS: CREATINE KINASE, TOTAL 49 U/L (39-308); CREATININE 0.84 mg/dL (0.7-1.3)
[2020-04-17] MEDS: INSULIN LISPRO 100 UNITS/ML, PEN SQ-INSULIN SCH ×4 (07:00→21:29)
[2020-04-17 07:29] VITALS: BP 111/68
[2020-04-17] MEDS ORDERED: PNEUMOC 13-VALENT VACC, 0.5 ML IM-VACC ONE (08:00)
[2020-04-17] MEDS ORDERED: VISIPAQUE 270 MG/ML, 50ML BOTTLE ONE (11:22)
[2020-04-17 13:49] VITALS: BP 95/50
[2020-04-17 13:50] VITALS: BP 93/56
[2020-04-17] MEDS: DAPTOMYCIN 300 MG in SODIUM CHLORIDE 0.9% 100 ML IV SCH (15:14)
[2020-04-17 18:36] VITALS: BP 102/64
[2020-04-17] MEDS: GABAPENTIN 300 MG CAPSULE PO SCH (21:21)
[2020-04-17] MEDS: INSULIN GLARGINE 100 UNITS/ML, PEN SQ-INSULIN SCH (21:29)
[2020-04-18 02:55] VITALS: BP 99/62
[2020-04-18] MEDS: NICOTINE 7 MG/24 HR PATCH.TD24 TD SCH (05:30)
[2020-04-18] MEDS: ENOXAPARIN 40 MG/0.4 ML SQ SCH (05:35)
[2020-04-18 07:15] VITALS: BP 95/58
[2020-04-18] MEDS: INSULIN LISPRO 100 UNITS/ML, PEN SQ-INSULIN SCH ×4 (08:09→21:49)
[2020-04-18] MEDS: DAPTOMYCIN 300 MG in SODIUM CHLORIDE 0.9% 100 ML IV SCH (14:35)
[2020-04-18 14:59] VITALS: BP 100/60
[2020-04-18 20:39] VITALS: BP 94/57
[2020-04-18] MEDS: GABAPENTIN 300 MG CAPSULE PO SCH (21:48)
[2020-04-18] MEDS: INSULIN GLARGINE 100 UNITS/ML, PEN SQ-INSULIN SCH (21:49)
[2020-04-19 03:55] VITALS: BP 92/51
[2020-04-19] MEDS: ENOXAPARIN 40 MG/0.4 ML SQ SCH (05:04)
[2020-04-19] MEDS: NICOTINE 7 MG/24 HR PATCH.TD24 TD SCH (05:04)
[2020-04-19 05:37] LABS: BASOPHILS # (AUTO) 0.04 x10^3/uL (0-0.1); BASOPHILS % (AUTO) 1 % (0-1); EOSINOPHILS # (AUTO) 0.17 x10^3/uL (0-0.4); EOSINOPHILS % (AUTO) 3 % (1-7); LYMPHOCYTES # (AUTO) 1.65 x10^3/uL (1-3.4); LYMPHOCYTES % (AUTO) 32 % (22-44); MD NO; MEAN CORPUSCULAR HEMOGLOBIN 32.4 pg (27.5-34.5); MEAN CORPUSCULAR HGB CONC 33.3 g/dL (33.2-36.2); MEAN CORPUSCULAR VOLUME 97.3 fL (81-97); MEAN PLATELET VOLUME 7.4 fL (7.4-10.4); MONOCYTES # (AUTO) 0.47 x10^3/uL (0.2-0.8); MONOCYTES % (AUTO) 9 % (2-9); NEUTROPHILS # (AUTO) 2.85 x10^3/uL (1.8-6.8); NEUTROPHILS % (AUTO) 55 % (42-75); PLATELET COUNT 241 x10^3/uL (130-400); RED BLOOD COUNT 4.15 x10^6/uL (4.38-5.82); RED CELL DISTRIBUTION WIDTH 13.5 % (9.4-14.8)
[2020-04-19 05:39] LABS: ANION GAP 3 mmol/L (5-15); CALCIUM 8.5 mg/dL (8.5-10.1); CHLORIDE 109 mmol/L (98-107); CREATININE 0.93 mg/dL (0.7-1.3)
[2020-04-19 06:59] VITALS: BP 105/67
[2020-04-19] MEDS: INSULIN LISPRO 100 UNITS/ML, PEN SQ-INSULIN SCH ×2 (07:00→11:17)
[2020-04-19] MEDS ORDERED: ACET325T26 PO (10:56)
[2020-04-19] MEDS ORDERED: DAPT500V6 IV (10:56)
[2020-04-19 13:14] VITALS: BP 94/55
[2020-04-19] MEDS ORDERED: DAPTOMYCIN 450 MG in SODIUM CHLORIDE 0.9% 100 ML IV SCH (14:00)
== END 2020-04-19 16:12 | disposition home or self-care (01) | DRG 314 ==
LOC: ED 03:45 → EDIP 04:06 → 3N 05:15 → DCLOUNGE 04-19 15:51
PROVIDERS: ADMIT Hospitalist; ATTEND Hospitalist
PROC: 0Y6X0Z1 Detachment at Right 5th Toe, High, Open Approach (ICD-10-PCS; principal; 2020-04-14 09:00)
PROC: 05H533Z Insertion of Infusion Device into Right Subclavian Vein, Percutaneous Approach (ICD-10-PCS; 2020-04-17)
PROC: B546ZZA Ultrasonography of Right Subclavian Vein, Guidance (ICD-10-PCS; 2020-04-17)
PROC: 3E03329 Introduction of Other Anti-infective into Peripheral Vein, Percutaneous Approach (ICD-10-PCS; 2020-04-17)
PROC: B5161ZA Fluoroscopy of Right Subclavian Vein using Low Osmolar Contrast, Guidance (ICD-10-PCS; 2020-04-17)
PROC: B5171ZZ Fluoroscopy of Left Subclavian Vein using Low Osmolar Contrast (ICD-10-PCS; 2020-04-17)
PROC: 05JY3ZZ Inspection of Upper Vein, Percutaneous Approach (ICD-10-PCS; 2020-04-17)
DX: E11.69 Type 2 diabetes mellitus with other specified complication (principal); E11.610 Type 2 diabetes mellitus with diabetic neuropathic arthropathy; I82.B13 Acute embolism and thrombosis of subclavian vein, bilateral; E11.65 Type 2 diabetes mellitus with hyperglycemia; E11.621 Type 2 diabetes mellitus with foot ulcer; E11.628 Type 2 diabetes mellitus with other skin complications; E11.42 Type 2 diabetes mellitus with diabetic polyneuropathy; D63.8 Anemia in other chronic diseases classified elsewhere; E87.6 Hypokalemia; F15.90 Other stimulant use, unspecified, uncomplicated; F17.210 Nicotine dependence, cigarettes, uncomplicated; L03.031 Cellulitis of right toe; L97.519 Non-pressure chronic ulcer of other part of right foot with unspecified severity; M19.90 Unspecified osteoarthritis, unspecified site; M86.8X7 Other osteomyelitis, ankle and foot; Z79.4 Long term (current) use of insulin; Z87.730 Personal history of (corrected) cleft lip and palate; Z89.412 Acquired absence of left great toe
CPT/HCPCS: 36415; 36573; 80048; 80053; 80061; 80307; 82550; 82962; 83036; 85025; 85651; 86140; 87040; 87070; 87075; 87205; 88300; 93922; 99285; G0378; J0295; J0878; J1650; J2250; J2543; J2704; J2997; J3010; J3370; Q9966; C1751; J1815; J2270; J7030; J7050